=== PATIENT | female | born 1940 | race Caucasian/White ===

== ENCOUNTER 2021-03-07 11:10 | Emergency (ER) | payer MEDICARE, OTHER ==
--- NOTE | 2021-03-07 11:16 | EDM.PDOC ---
ED HPI GENERAL MEDICAL PROBLEM - General Chief Complaint: General Stated Complaint: fall, rib pain Time Seen by Provider: 03/07/21 11:10 Source of Information: Reports: Patient, Old Records ([facility] EMR. No paper hospital chart available.) History Limitations: Reports: Altered Mental Status - History of Present Illness INITIAL COMMENTS - FREE TEXT/NARRATIVE: Patient was brought to the emergency room via private automobile by her daughter for evaluation of 07/15 persistent sharp left anterior chest wall pain at site of her previous mastectomy, which started after she tripped on her blankets at home while making her bed in the afternoon about 4 days ago. She hit her left chest wall on her dresser knobs with no history of significant fall, neck/back pain, head injury, loss of consciousness, change in mental status, etc. The patient denies any chest pressure, heart flutter, dizziness, orthostasis, orthopnea, diaphoresis, paresthesias, recent decreased exercise tolerance, or any other anginal-type symptoms. No recent history of abdominal pain, heartburn, nausea, diarrhea, melena, gross hematochezia, or any food intolerance, including fatty foods, etc.. She denies any gross hematuria, colic, or the UTI symptoms. The patient also denies any recent fever, wheezing, dyspnea, etc., although stable chronic cough secondary to her seasonal allergies which does exacerbate her chest wall symptoms as above. Patient did take 800 mg of ibuprofen yesterday with only some improvement of her symptoms. She has also been using local ice packs. The patient has not injured this area in the past. 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 Onset: Unknown/Unsure Onset Date: 03/03/21 Duration: Constant Location: Reports: Chest. Denies: Head, Face, Neck, Abdomen, Back, Pelvis, Upper Extremity, Left, Upper Extremity, Right, Lower Extremity, Left, Lower Extremity, Right, Radiates to Quality: Reports: Same as Previous Episode, Sharp, Stabbing Severity: Severe Improves with: Reports: None Worsens with: Reports: Breathing (And/or cough) Context: Reports: Trauma (As above). Denies: Sick Contact Associated Symptoms: Reports: Confusion (Stable chronic), Chest Pain (As above), Cough (As abovenonproductive). 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, NSAIDS, Other (see below) (As above) Left Anterior Chest Pain Score (Numeric/FACES): 10 - Related Data Allergies Allergy/AdvReac Type Severity Reaction Status Date / Time ciprofloxacin [From Cipro] Allergy Cannot Verified 03/07/21 11:19 Remember codeine Allergy Cannot Verified 03/07/21 11:19 Remember iodine Allergy Cannot Verified 03/07/21 11:19 Remember morphine Allergy Cannot Verified 03/07/21 11:19 Remember Penicillins Allergy Cannot Verified 03/07/21 11:19 Remember Sulfa (Sulfonamide Allergy Cannot Verified 03/07/21 11:19 Antibiotics) Remember Home Meds: Home Meds Albuterol Sulfate [Proair Hfa] 2 puff IH Q4H PRN 03/07/21 [History] Escitalopram [Lexapro] 20 mg PO DAILY 03/07/21 [History] Levothyroxine [Synthroid] 88 mcg PO ACBREAKFAST 03/07/21 [History] Memantine HCl [Memantine HCl ER] 21 mg PO DAILY 03/07/21 [History] Past Medical History HEENT History: Reports: Allergic Rhinitis Respiratory History: Reports: Asthma, Bronchitis, Recurrent, Intubation, Previous. Denies: Intubation, Difficult Genitourinary History: Reports: Urinary Incontinence, UTI, Recurrent Musculoskeletal History: Reports: Arthritis, Back Pain, Chronic, Osteoarthritis, Osteoporosis, Other (See Below) Other Musculoskeletal History: Mild scoliosis. 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 Psychiatric History: Reports: Alzheimers Disease, Anxiety, Dementia, Depression, Other (See Below) Other Psychiatric History: Organic brain syndrome. Endocrine/Metabolic History: Reports: Hypothyroidism, Osteopenia, Osteoporosis Oncologic (Cancer) History: Reports: Breast, Other (See Below) Other Oncologic History: Left-sided breast cancer requiring mastectomy as below. - Infectious Disease History Infectious Disease History: Denies: Novel Coronavirus (Patient did receive her 2 Moderna immunizations last on 12/28/2020.) - Past Surgical History Female Surgical History: Reports: Breast Biopsy, Mastectomy, Other (See Below) Other Female Surgeries/Procedures: Left-sided mastectomy secondary to breast cancer in the . - Past Imaging History Past Imaging History: Reports: Carotid US (01/15/2021), DEXA Scan (01/12/2021.), Mammogram (Last of the right breast on 08/23/2020.), MRI (Brain 10/16/2020) ED ROS GENERAL - Review of Systems Review Of Systems: Comprehensive ROS is negative, except as noted in HPI. ED EXAM, GENERAL - Physical Exam Exam: See Below Exam Limited By: No Limitations General Appearance: Alert, WD/WN, No Apparent Distress, Anxious (Moderate) Head: Atraumatic, Normocephalic. No: Facial Swelling, Facial Tenderness, Sinus Tenderness Neck: Normal Inspection, Supple, Non-Tender, Full Range of Motion. No: Lymphadenopathy (L), Lymphadenopathy (R), Thyromegaly Respiratory/Chest: No Respiratory Distress, Lungs Clear, Normal Breath Sounds, No Accessory Muscle Use. No: Chest Non-Tender (Mild to moderate palpation pain over the anterior lateral inferior chest wall region at site of her mastectomy with no crepitation, ecchymosis, swelling, sign of fracture, etc.), Pleural Rub, Retractions Cardiovascular: Normal Peripheral Pulses, Regular Rate, Rhythm, No Edema, No Gallop, No JVD, No Murmur, No Rub. No: Gallop/S3, Gallop/S4, Friction Rub Peripheral Pulses: 2+: Radial (L), Radial (R) GI/Abdominal: Normal Bowel Sounds, Soft, Non-Tender, No Organomegaly, No Distention, No Abnormal Bruit, No Mass, Pelvis Stable. No: Guarding (Female) Exam: Deferred Rectal (Female) Exam: Deferred Back Exam: Full Range of Motion, Other (Mild scoliosis). No: CVA Tenderness (L), CVA Tenderness (R), Muscle Spasm, Paraspinal Tenderness, Vertebral Tenderness Extremities: Normal Inspection, Normal Range of Motion, Non-Tender, No Pedal Edema, Normal Capillary Refill. No: Daniel's Sign Neurological: Alert, Oriented, CN II-XII Intact, Normal Gait, No Motor/Sensory Deficits, Confused (Stable by history mild organic brain syndrome) Psychiatric: Anxious (Moderate), Depressed Mood (Mild) Skin Exam: Warm, Dry, Intact, Normal Color, No Rash. No: Diaphoretic, Ecchymosis, Petechiae, Wound/Incision Lymphatic: No Adenopathy Course - Vital Signs Last Recorded V/S: Last Vital Signs Temp 36.3 C 03/07/21 11:20 Pulse 78 03/07/21 11:20 Resp 16 03/07/21 11:20 BP 159/73 H 03/07/21 11:20 Pulse Ox 97 03/07/21 11:20 Vital Signs - 24 hr 03/07/21 11:20 Temperature [ 36.3 C Temporal] Pulse, 78 Peripheral [ Pulse Oximetry] Respiratory 16 Rate Blood Pressure 159/73 H [Right Upper Arm] O2 Sat by Pulse 97 Oximetry - Orders/Labs/Meds Orders: Active Orders 24 hr Category Date Time Status Ribs 2V w Chest Lt [CR] Stat Exams 03/07/21 11:17 Taken Durable Medical Equipment for Discharge [DME for Oth 03/07/21 11:47 Ordered Discharge] [COMM] Routine Obtain Past Medical Record [OM.PC] Routine Ot 03/07/21 11:17 Active Labs: None Meds: None - Radiology Interpretation Free Text/Narrative:: Chest x-ray, 1 view with 2 lateral views of the left ribs, show no evidence of fracture. Moderate pulmonary obstructive changes with no pulmonary infiltrates, pneumothorax, etc. Moderate osteoarthritic changes, including mild scoliosis. Mild aortic valve calcification with no cardiomegaly, CHF, etc. Departure - Departure Time of Disposition: 12:00 Disposition: Home, Self-Care 01 Clinical Impression: Mixed anxiety and depressive disorder, Confusion, Elevated blood pressure reading Chest wall contusion Qualifiers: Encounter type: initial encounter Laterality: left Qualified Code(s): S20.212A - Contusion of left front wall of thorax, initial encounter Osteoarthritis Qualifiers: Osteoarthritis location: multiple joints Osteoarthritis type: primary Qualified Code(s): M89.49 - Other hypertrophic osteoarthropathy, multiple sites Asthma Qualifiers: Asthma severity: mild Asthma persistence: intermittent Asthma complication type: uncomplicated Qualified Code(s): J45.20 - Mild intermittent asthma, uncomplicated - Discharge Information *PRESCRIPTION DRUG MONITORING PROGRAM REVIEWED*: Not Applicable *COPY OF PRESCRIPTION DRUG MONITORING REPORT IN PATIENT STEFFI: Not Applicable Instructions: Contusion, [id number] Referrals: Christy Liz PA-C [Primary Care Provider] - Forms: ED Department Discharge Additional Instructions: 1. Follow up with your regular provider in 10-14 days as needed, if symptoms persist. Bring these discharge instructions with you to that visit. 2. BenGay or equivalent, heating pad, and/or ice packs as directed. 3. Tylenol 650 mg by mouth every 4 hours and/or OTC ibuprofen 2-3 tabs by mouth every 6 hours with food as directed./needed. You may stagger these medications for 48-72 hours only, which essentially means that you are receiving a pain medication about every 2 hours. 4. Immediately after this visit verify that your cellular telephone's voicemail has been activated and is empty. Also verify that your home telephone's answering machine is operating properly and has space to receive messages. Note that it is sometimes necessary for us to be able to contact you at a later date to discuss your medical care. 5. Please remember that we are ALWAYS here for you and want to answer any questions you may have. Feel free to call the hospital any time and we call you back SHIVANI. 6. Continue to observe your blood pressures closely by your regular provider Sepsis Event Note (ED) - Focused Exam Vital Signs: Vital Signs Temp Pulse Resp BP Pulse Ox 03/07/21 11:20 36.3 C 78 16 159/73 H 97 - Problem List & Annotations (1) Chest wall contusion SNOMED Code(s): 58517449 Code(s): S20.219A - CONTUSION OF UNSPECIFIED FRONT WALL OF THORAX, INIT ENCNTR Status: Acute Priority: High Current Visit: Yes Onset Date: ~02/04 06/26 Annotation/Comment:: Minor chest wall contusion. Symptomatic relief as per discharge instructions. Patient provided a heating pack and incentive spirometer in the emergency room. Qualifiers: Encounter type: initial encounter Laterality: left Qualified Code(s): S20.212A - Contusion of left front wall of thorax, initial encounter (2) Confusion SNOMED Code(s): 509734366 Code(s): R41.0 - DISORIENTATION, UNSPECIFIED Status: Chronic Priority: Medium Current Visit: Yes Annotation/Comment:: Stable by patient history. Note recent MRI of the brain in October 2020. Continue to observe closely by regular provider. (3) Mixed anxiety and depressive disorder SNOMED Code(s): 281461114 Code(s): F41.8 - OTHER SPECIFIED ANXIETY DISORDERS Status: Chronic Priority: Medium Current Visit: Yes Annotation/Comment:: Mild to moderate control based on today's exam. Continue to observe closely by her medical provider with medication adjustment depending on her clinical course. (4) Osteoarthritis SNOMED Code(s): 870769566 Code(s): M19.90 - UNSPECIFIED OSTEOARTHRITIS, UNSPECIFIED SITE Status: Chronic Priority: Medium Current Visit: Yes Annotation/Comment:: Otherwise stable by history with no evidence of other injuries, etc. Qualifiers: Osteoarthritis location: multiple joints Osteoarthritis type: primary Qualified Code(s): M89.49 - Other hypertrophic osteoarthropathy, multiple sites (5) Elevated blood pressure reading SNOMED Code(s): 38610528 Code(s): R03.0 - ELEVATED BLOOD-PRESSURE READING, W/O DIAGNOSIS OF HTN Status: Acute Priority: Medium Current Visit: Yes Onset Date: 03/07/21 Annotation/Comment:: Mildly elevated blood pressure reading today likely s econdary to discomfort. No previous history of hypertension. Continue to observe closely by her regular provider. Anxiety component. (6) Asthma SNOMED Code(s): 612080688 Code(s): J45.909 - UNSPECIFIED ASTHMA, UNCOMPLICATED Status: Chronic Priority: Medium Current Visit: Yes Annotation/Comment:: Stable nonproductive chronic cough from her allergic rhinitis continue recent use of her inhaler, etc. Qualifiers: Asthma severity: mild Asthma persistence: intermittent Asthma complication type: uncomplicated Qualified Code(s): J45.20 - Mild intermittent asthma, uncomplicated - Problem List Review Problem List Initiated/Reviewed/Updated: Yes - My Orders Last 24 Hours: My Active Orders 03/07/21 11:17 Ribs 2V w Chest Lt [CR] Stat Obtain Past Medical Record [OM.PC] Routine 03/07/21 11:47 Durable Medical Equipment for Discharge [DME for Discharge] [COMM] Routine - Assessment/Plan Last 24 Hours: My Active Orders 03/07/21 11:17 Ribs 2V w Chest Lt [CR] Stat Obtain Past Medical Record [OM.PC] Routine 03/07/21 11:47 Durable Medical Equipment for Discharge [DME for Discharge] [COMM] Routine Assessment:: As above Plan: As above. Extensive precautions were given to the patient and her daughter, who are in agreement with the treatment plan. See Patient Instructions for further treatment and plan.
== END 2021-03-07 12:00 | disposition home or self-care (01) ==
LOC: LL.ED 11:10
DX: S20.212A Contusion of left front wall of thorax, initial encounter (principal); F41.8 Other specified anxiety disorders; R41.0 Disorientation, unspecified; M89.49 Other hypertrophic osteoarthropathy, multiple sites; J45.909 Unspecified asthma, uncomplicated; Z88.1 Allergy status to other antibiotic agents; Z88.5 Allergy status to narcotic agent; Z91.041 Radiographic dye allergy status; Z88.0 Allergy status to penicillin; Z88.2 Allergy status to sulfonamides; W01.0XXA Fall on same level from slipping, tripping and stumbling without subsequent striking against object, initial encounter; Y92.009 Unspecified place in unspecified non-institutional (private) residence as the place of occurrence of the external cause
CPT/HCPCS: 71101-LT; 99283; 99284

== ENCOUNTER 2023-06-09 12:45 | Emergency (ER) | payer MEDICARE ==
[2023-06-09 14:09] LABS: BASOPHILS ABSOLUTE AUTO 0.01 K/uL (0.00-0.20); BASOPHILS PERCENT AUTO 0.1 % (0.0-2.0); EOSINOPHILS ABSOLUTE AUTO 0.23 K/uL (0.00-0.50); EOSINOPHILS PERCENT AUTO 3.4 % (0.0-5.0); HEMOGLOBIN 13.9 g/dL (11.7-15.5); LYMPHOCYTES ABSOLUTE AUTO 2.49 K/uL (0.50-3.50); LYMPHOCYTES PERCENT AUTO 36.5 % (10.0-50.0); MEAN CORPUSCULAR HEMOGLOBIN 31.6 pg (28.2-33.3); MEAN CORPUSCULAR HGB CONC 33.1 g/dL (31.7-36.0); MEAN CORPUSCULAR VOLUME 95.5 fL (84.0-98.0); MONOCYTES ABSOLUTE AUTO 0.72 K/uL (0.00-1.00); MONOCYTES PERCENT AUTO 10.6 % (2.0-14.0); NEUTROPHILS ABSOLUTE AUTO 3.37 K/uL (1.40-7.00); NEUTROPHILS PERCENT AUTO 49.4 % (45.0-80.0); PLATELET COUNT,PLT 270 K/uL (150-350); RED CELL DISTRIBUTION WIDTH 13.8 % (11.2-14.1); WHITE BLOOD CELL COUNT,WBC 6.8 K/uL (4.0-10.2)
[2023-06-09 14:32] LABS: APPEARANCE,URINE SLIGHTLY CLOUDY; BILIRUBIN,URINE NEGATIVE (NEGATIVE); COLOR,URINE LIGHT YELLOW; GLUCOSE,URINE NEGATIVE (NEGATIVE); KETONES,URINE NEGATIVE (NEGATIVE); LEUKOCYTE ESTERASE,URINE SMALL (NEGATIVE); NITRITE,URINE POSITIVE (NEGATIVE); OCCULT BLOOD,URINE NEGATIVE (NEGATIVE); PROTEIN,URINE NEGATIVE (NEGATIVE); UROBILINOGEN,URINE 0.2 E.U./dL (0.2-1.0)
[2023-06-09 14:36] LABS: ALANINE AMINOTRANSFERASE,ALT 17 U/L (12-78); ALBUMIN 3.6 g/dL (3.4-5.0); ALKALINE PHOSPHATASE 82 IU/L (46-116); ASPARTATE AMNIOTRANSFERASE,AST 16 U/L (15-37); BILIRUBIN TOTAL 0.3 mg/dL (0.2-1.0); BLOOD UREA NITROGEN,BUN 14 mg/dL (7-18); CALCIUM 9.4 mg/dL (8.5-10.1); CHLORIDE,CL 103 mmol/L (98-107); CREATININE 0.93 mg/dL (0.51-1.17); GLUCOSE RANDOM 109 mg/dL (70-99); POTASSIUM,K 3.9 mmol/L (3.5-5.1); PRO B-TYPE NATRIUR PEPT,BNPPRO 204 pg/mL (0-125); PROTEIN TOTAL,TP 7.6 g/dL (6.4-8.2); SODIUM,NA 138 mmol/L (136-145)
[2023-06-09 14:39] LABS: BACTERIA,URINE MANY /HPF (NONE TO FEW); EPITHELIAL CELLS,URINE FEW /LPF; RBC,URINE 0-5 /HPF; WBC,URINE 75-100 /HPF
[2023-06-09 14:39] LABS: ESTIMATED GFR 62 mL/min (>=60)
[2023-06-09] MEDS: Take Home: predniSONE 20 MG, 4 Tab Pack PO ONE (15:40)
[2023-06-09] MEDS: Take Home: Cefuroxime 500 MG Tab, 6 Tab Pack PO ONE (15:40)
== END 2023-06-09 15:45 | disposition home or self-care (01) ==
LOC: LL.ED 12:45
DX: U07.1 COVID-19 (principal); N39.0 Urinary tract infection, site not specified; R79.1 Abnormal coagulation profile; J45.909 Unspecified asthma, uncomplicated; E03.9 Hypothyroidism, unspecified; Z88.2 Allergy status to sulfonamides; Z88.1 Allergy status to other antibiotic agents; Z88.5 Allergy status to narcotic agent; Z91.041 Radiographic dye allergy status; Z88.0 Allergy status to penicillin; Z79.899 Other long term (current) drug therapy
CPT/HCPCS: 36415; 71045; 80053; 81001; 83605; 83880; 84484; 85025; 85379; 87086; 87088; 87186; 93005; 93010; 99284; A9270-GY